=== PATIENT | female | born 2000 | race Caucasian/White ===

== ENCOUNTER 2021-01-29 09:35 | Day surgery (SDC) | payer OTHER ==
[2021-01-23 15:07] LABS: BASOPHIL % 0.5 % (0.2-1.3); PLATELET COUNT 306 x10^3mcL (179-408); RED CELL DISTRIBUTION WIDTH 13.2 % (12.3-17.7)
[2021-01-23 15:19] LABS: ALKALINE PHOSPHATASE 331 U/L (46-116); ALT/SGPT 414 U/L (14-59); AST/SGOT 94 U/L (15-37); BILIRUBIN TOTAL 0.3 mg/dL (0.20-1.00); CALCIUM 10.1 mg/dL (8.5-10.1); CARBON DIOXIDE 27.9 mmol/L (21-32); CHLORIDE SERUM 102 mmol/L (98-107); CREATININE SERUM 0.5 mg/dL (0.6-1.0); GFR1 > 60 mL/min; GLUCOSE SERUM 87 mg/dL (74-106); POTASSIUM SERUM 4.1 mmol/L (3.5-5.1); SODIUM SERUM 139 mmol/L (136-145); TOTAL PROTEIN, SERUM 7.9 g/dL (6.4-8.2)
[~2021-01-29] VITALS: Ht 149.9 cm; Wt 62.6 kg
[2021-01-29 10:02] VITALS: BP 130/57
[2021-01-29 17:45] VITALS: BP 141/82
== END 2021-01-29 17:40 | disposition home or self-care (01) ==
LOC: DS 09:35 → OR 11:30 → DS 11:30
PROVIDERS: ATTEND Surgery
DX: K80.10 Calculus of gallbladder with chronic cholecystitis without obstruction (principal); J45.909 Unspecified asthma, uncomplicated; Z20.822 Contact with and (suspected) exposure to COVID-19
CPT/HCPCS: C1887; J0330; J0690; J0694; J2175; J2250; J2405; J2704; J3010; J3490; J7030; J7120; Q9967; U0003